=== PATIENT | female | born 1995 | race Hispanic/Latino ===

== ENCOUNTER 2017-10-10 00:12 | Emergency (ER) | payer BC, OTHER ==
--- NOTE | 2017-10-10 00:32 | ER ---
Nurse's Notes [facility] Name: Evie Aguilera Age: 21 yrs Sex: Female : 1995 Arrival Date: 10/10/2017 Time: 00:12 Bed 14 Private MD: Diagnosis: Otitis media, unspecified, left ear Presentation: 10/10 00:23 Presenting complaint: Patient states: Left ear pain off and on the past 3-4 days, lp1 states taking OTC ear drops with some relief; Ear pain worse tonight and patient states bump to back of left ear. Transition of care: patient was not received from another setting of care. Onset of symptoms was October 10, 2017. Risk Assessment: Do you want to hurt yourself or someone else? Patient reports no desire to harm self or others. Initial Sepsis Screen: Does the patient meet any 2 criteria? No. Patient's initial sepsis screen is negative. Does the patient have a suspected source of infection? No. Patient's initial sepsis screen is negative. Care prior to arrival: None. 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 - Social history:: Smoking status: Patient/guardian denies using tobacco. - Ebola Screening: : No symptoms or risks identified at this time. Screenin:27 Abuse screen: Denies threats or abuse. Denies injuries from another. Nutritional lp1 screening: No deficits noted. Tuberculosis screening: No symptoms or risk factors identified. Fall Risk None identified. Assessment: 00:26 General: Appears in no apparent distress. comfortable, Behavior is calm, cooperative, lp1 appropriate for age. Pain: Complains of pain in left ear Pain currently is 7 out of 10 on a pain scale. Quality of pain is described as aching. Neuro: Level of Consciousness is awake, alert, obeys commands. Cardiovascular: Patient's skin is warm and dry. Respiratory: Respiratory effort is even, unlabored. GI: No signs and/or symptoms were reported involving the gastrointestinal system. : No signs and/or symptoms were reported regarding the genitourinary system. EENT: Reports pain in left ear. Derm: Skin is pink, warm \T\ dry. Musculoskeletal: Circulation, motion, and sensation intact. Vital Signs: 00:25 BP 105 / 61; Pulse 71; Resp 16; Temp 98.0(O); Pulse Ox 99% on R/A; Weight 105.23 kg; lp1 Height 5 ft. 4 in. (162.56 cm); Pain 7/10; 00:25 Body Mass Index 39.82 (105.23 kg, 162.56 cm) lp1 ED Course: 00:12 Patient arrived in ED. ds1 00:23 Rocio Babb RN is Primary Nurse. lp1 00:25 Triage completed. lp1 00:25 Arm band placed on left wrist. lp1 00:26 Amandeep [facility]cdaniel [facility]. pm1 00:26 Kenn Villasenor MD is Attending Physician. pm1 00:27 No provider procedures requiring assistance completed. Patient did not have IV access lp1 during this emergency room visit. 00:28 Patient has correct armband on for positive identification. lp1 Administered Medications: 00:39 Drug: [place] 5 mg-325 mg 1 tabs Route: PO; lp1 00:39 Follow up: Response: Medication administered at discharge. lp1 00:39 Drug: Amoxicillin 500 mg Route: PO; lp1 00:39 Follow up: Response: Medication administered at discharge. lp1 Outcome: 00:31 Discharge ordered by . pm1 00:40 Discharged to home ambulatory, with family. lp1 00:40 Condition: good 00:40 Discharge instructions given to patient, Instructed on discharge instructions, follow up and referral plans. medication usage, Demonstrated understanding of instructions, follow-up care, medications, Prescriptions given X 2. 00:40 Patient left the ED. lp1 Signatures: Gillian Poon ds1 Rocio Babb RN RN lp1 Amandeep Mcdaniel NP COPY HOLDER pm1
--- NOTE | 2017-10-10 00:32 | EDPHYS ---
Physician Documentation [facility] Name: Evie Aguilera Age: 21 yrs Sex: Female : 1995 Arrival Date: 10/10/2017 Time: 00:12 Bed 14 Private MD: ED Physician Kenn Villasenor HPI: 10/10 00:30 This 21 yrs old Female presents to ER via Ambulatory with complaints of Ear pm1 Pain. 00:30 The patient presents with pain. The complaints affect the left ear. Onset: The pm1 symptoms/episode began/occurred 4 day(s) ago. Modifying factors: The symptoms are alleviated by nothing, the symptoms are aggravated by nothing. Associated signs and symptoms: Pertinent negatives: fever, sore throat. Severity of symptoms: in the emergency department the symptoms are worse. The patient has not experienced similar symptoms in the past. The patient has not recently seen a physician. patient has been using ear drops OTC but has not improved. 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 - Social history:: Smoking status: Patient/guardian denies using tobacco. - Ebola Screening: : No symptoms or risks identified at this time. ROS: 00:30 Constitutional: Negative for fever, chills, and weight loss, Eyes: Negative for injury, pm1 pain, redness, and discharge. 00:30 Neck: Negative for injury, pain, and swelling, Cardiovascular: Negative for chest pain, palpitations, and edema, Respiratory: Negative for shortness of breath, cough, wheezing, and pleuritic chest pain, Abdomen/GI: Negative for abdominal pain, nausea, vomiting, diarrhea, and constipation, Back: Negative for injury and pain, MS/Extremity: Negative for injury and deformity, Skin: Negative for injury, rash, and discoloration, Neuro: Negative for headache, weakness, numbness, tingling, and seizure. 00:30 ENT: Positive for ear pain, Negative for drainage from ear(s). Exam: 00:30 Constitutional: This is a well developed, well nourished patient who is awake, alert, pm1 and in no acute distress. Head/Face: Normocephalic, atraumatic. Eyes: Pupils equal round and reactive to light, extra-ocular motions intact. Lids and lashes normal. Conjunctiva and sclera are non-icteric and not injected. Cornea within normal limits. Periorbital areas with no swelling, redness, or edema. 00:30 Neck: Trachea midline, no thyromegaly or masses palpated, and no cervical lymphadenopathy. Supple, full range of motion without nuchal rigidity, or vertebral point tenderness. No Meningismus. Chest/axilla: Normal chest wall appearance and motion. Nontender with no deformity. No lesions are appreciated. Cardiovascular: Regular rate and rhythm with a normal S1 and S2. No gallops, murmurs, or rubs. Normal PMI, no JVD. No pulse deficits. Respiratory: Lungs have equal breath sounds bilaterally, clear to auscultation and percussion. No rales, rhonchi or wheezes noted. No increased work of breathing, no retractions or nasal flaring. Back: No spinal tenderness. No costovertebral tenderness. Full range of motion. Skin: Warm, dry with normal turgor. Normal color with no rashes, no lesions, and no evidence of cellulitis. MS/ Extremity: Pulses equal, no cyanosis. Neurovascular intact. Full, normal range of motion. 00:30 ENT: External ear(s): are unremarkable, Ear canal(s): are normal, TM's: bulging, on the left, erythema, on the left, rupture, is not appreciated, Examination of the other ear shows no obvious abnormality, Nose: is normal, no acute changes, Mouth: is normal, no acute changes, Posterior pharynx: is normal, no acute changes. 00:30 Neuro: Orientation: is normal, Motor: moves all fours, Gait: is steady, at a normal pace, without difficulty. Vital Signs: 00:25 BP 105 / 61; Pulse 71; Resp 16; Temp 98.0(O); Pulse Ox 99% on R/A; Weight 105.23 kg; lp1 Height 5 ft. 4 in. (162.56 cm); Pain 7/10; 00:25 Body Mass Index 39.82 (105.23 kg, 162.56 cm) lp1 MDM: 00:26 Patient medically screened. pm1 00:30 Data reviewed: vital signs. Data interpreted: Pulse oximetry: on room air is 99 %. pm1 Interpretation: normal. Counseling: I had a detailed discussion with the patient and/or guardian regarding: the historical points, exam findings, and any diagnostic results supporting the discharge/admit diagnosis, the need for outpatient follow up, to return to the emergency department if symptoms worsen or persist or if there are any questions or concerns that arise at home. Administered Medications: 00:39 Drug: [place] 5 mg-325 mg 1 tabs Route: PO; lp1 00:39 Follow up: Response: Medication administered at discharge. lp1 00:39 Drug: Amoxicillin 500 mg Route: PO; lp1 00:39 Follow up: Response: Medication administered at discharge. lp1 Disposition: 01:51 Co-signature as Attending Physician, Kenn Villasenor MD. pk Disposition: 10/10/17 00:31 Discharged to Home. Impression: Otitis media, unspecified, left ear. - Condition is Stable. - Discharge Instructions: Otitis Media, Adult. - Prescriptions for Amoxicillin 500 mg Oral Capsule - take 1 capsule by ORAL route every 8 hours for 10 days; 30 tablet. Tylenol- Codeine #3 300-30 mg Oral Tablet - take 2 tablets by ORAL route every 6 hours As needed; 20 tablet. - Medication Reconciliation Form, Thank You Letter, Antibiotic Education, Prescription Opioid Use form. - Follow up: Emergency Department; When: As needed; Reason: Worsening of condition. Follow up: Private Physician; When: 2 - 3 days; Reason: Recheck today's complaints, Continuance of care, Re-evaluation by your physician. - Problem is new. - Symptoms have improved. Signatures: Kenn Villasenor MD MD pkl Rocio Babb RN RN lp1 Amandeep Mcdaniel NP STUDENT MINISTRIES DIRECTOR pm1 Corrections: (The following items were deleted from the chart) 00:40 00:31 10/10/2017 00:31 Discharged to Home. Impression: Otitis media, unspecified, left lp1 ear. Condition is Stable. Forms are Medication Reconciliation Form, Thank You Letter, Antibiotic Education, Prescription Opioid Use. Follow up: Emergency Department; When: As needed; Reason: Worsening of condition. Follow up: Private Physician; When: 2 - 3 days; Reason: Recheck today's complaints, Continuance of care, Re-evaluation by your physician. Problem is new. Symptoms have improved. pm1
[2017-10-10] MEDS ORDERED: HYDROCODONE/APAP 5/325 MG TAB ONE (00:37)
[2017-10-10] MEDS ORDERED: AMOXICILLIN TRIHYDR 250 MG CAP ONE (00:37)
== END 2017-10-10 00:40 | disposition home or self-care (01) ==
LOC: ER 00:12
DX: H66.92 Otitis media, unspecified, left ear (principal)
CPT/HCPCS: 99283